=== PATIENT | female | born 1965 | race Caucasian/White ===

== ENCOUNTER 2024-05-14 00:14 | Emergency (ER) | payer MEDICAID ==
[~2024-05-14] VITALS: Ht 165.1 cm; Wt 56.7 kg
[2024-05-14] MEDS ORDERED: diphenhydrAMINE 50 MG CAPSULE ONE (00:44)
[2024-05-14] MEDS: diphenhydrAMINE 50 MG CAPSULE PO ONE (00:46)
[2024-05-14 01:29] VITALS: BP 128/88; TEMP 97.8; O2SAT 100
== END 2024-05-14 01:30 | disposition home or self-care (01) ==
LOC: ER 00:32
DX: T78.49XA Other allergy, initial encounter (principal); R06.02 Shortness of breath; R09.81 Nasal congestion; X58.XXXA Exposure to other specified factors, initial encounter
CPT/HCPCS: 99283; 85379; 36415; Q0163; A4606; A4663